=== PATIENT | female | born 1985 | race Caucasian/White ===

== ENCOUNTER → 2017-01-07 | Outpatient (CLI) | payer OTHER | LOC: FIMAGING 14:04 | PROVIDERS: ATTEND Obstetrics & Gynecology | DX: O09.213 Supervision of pregnancy with history of pre-term labor, third trimester (principal); O73.0 Retained placenta without hemorrhage; Z3A.32 32 weeks gestation of pregnancy ==

== ENCOUNTER 2017-01-18 15:46 | Observation (INO) | payer OTHER ==
--- NOTE | 2017-01-18 17:29 | SOAPPROG ---
SOAP Progress Note Assessment/Plan: Assessment: 33w3d H/o delivery at 36 weeks Reactive NST Mild upper abdominal pain, unclear etiology, possibly MSK vs gas pain. No e/o PIH, labor, abruption Plan: Trial abd binder tylenol/ice Call if symptoms worsen or change Urine test of cure F/u as scheduled on with Dr. Porter Jesus Encouraged pt to call [facility] with any concerns, explained how to use after hours line 01/18/17 17:25 01/18/17 17:30 01/18/17 17:35 Subjective: Pt is a 31 yo at 33w3d, followed by Dr. Porter Jesus. She started having mild upper abdominal discomfort, abdomen is tender to touch and uncomfortable when moving, about 3/10 pain. Started 3 days ago near the end of the day, resolved with rest, then happened again yesterday later in the afternoon, and then today it was present when she woke up. Goes away completely when she lays down and isn't moving around. Is very mild overall. No fevers/ chills. No nausea or vomiting. No diarrhea or constipation. No LOF, Ctx, VB. + FM. Doesn't feel like GERD, she had that in past and has been treated with famotidine. Doesn't seem related to food. Had enterococcus UTI last week, was asymptomatic but found on routine urine dip, did complete 7 days of macrobid. Pt wasn't sure what to do so she googled for a nurse advice line and was connected with [facility] who advised her to present to ED. c/b prior PTD at 36 weeks, she has been on 17 OHP this PMS, PSH, FM, SH, Meds, Allergies reviewed, non contributory Objective: FHR baseline 115, mod joy, + accels, no decels Rare contraction Reactive NST Vitals: 105/61, 63, 95% Gen: NAD Resp: unlabored CV: Reg rate Abd: gravid, soft, nontender Ext: no edema SVE: long/closed/soft ICD10 Worksheet Patient Problems: Problems Problem Status Onset Abdominal pain affecting Acute - ICD10 Problem Qualifiers (1) Abdominal pain affecting
== END 2017-01-18 17:45 | disposition home or self-care (01) ==
LOC: FLD 15:46
PROVIDERS: ADMIT Obstetrics & Gynecology; ATTEND Obstetrics & Gynecology
DX: O99.89 Other specified diseases and conditions complicating pregnancy, childbirth and the puerperium (principal); R10.10 Upper abdominal pain, unspecified; Z3A.33 33 weeks gestation of pregnancy; Z87.51 Personal history of pre-term labor
CPT/HCPCS: G0378 ×2

== ENCOUNTER → 2017-01-28 | Outpatient (CLI) | payer OTHER | LOC: FIMAGING 12:47 | PROVIDERS: ATTEND Obstetrics & Gynecology | DX: Z34.82 Encounter for supervision of other normal pregnancy, second trimester (principal); Z3A.35 35 weeks gestation of pregnancy ==

== ENCOUNTER 2017-02-25 05:36 | Inpatient (IN) | payer OTHER ==
[2017-02-25] MEDS ORDERED: LR 500 ML IV ONE (05:48)
[2017-02-25] MEDS ORDERED: CITRIC ACID/SODIUM CITRATE 30 ML UDCUP PO ONE (05:48)
[2017-02-25] MEDS ORDERED: ceFAZolin 2 GM/DEXTROSE 100 ML IV ONE (05:48)
[2017-02-25] MEDS ORDERED: LR 1,000 ML IV SCH (06:00)
[2017-02-25 06:21] LABS: % IMMATURE GRANULYOCYTES 0.8 % (0.0-1.1); ABSOLUTE IMMATURE GRANULOCYTES 0.09 10^3/uL (0.00-0.10); ADD DIFF? NO; ADD MORPH? NO; ADD SCAN? NO; ATYPICAL LYMPHOCYTE FLAG 10 (0-99); FRAGMENT RBC FLAG 0 (0-99); HEMATOCRIT 38.9 % (38.0-47.0); HEMOGLOBIN 13.4 g/dL (12.6-16.3); LEFT SHIFT FLG 0 (0-99); LIPEMIA HEMOLYSIS FLAG 90 (0-99); MEAN CELL HEMOGLOBIN 30.5 pg (27.9-34.1); MEAN CELL HEMOGLOBIN CONCENTR. 34.4 g/dL (32.4-36.7); MEAN CELL VOLUME 88.6 fL (81.5-99.8); PLATELET CLUMPS FLAG 0 (0-99); PLATELET COUNT 280 10^3/uL (150-400); RED BLOOD CELL COUNT 4.39 10^6/uL (4.18-5.33); RED CELL DISTRIBUTION WIDTH 13.1 % (11.5-15.2)
[2017-02-25] MEDS ORDERED: LIDOCAINE 1% 30 ML SDV ONE (06:56)
[2017-02-25] MEDS ORDERED: TERBUTALINE SULFATE 1 MG/ML VIAL ONE (06:57)
[2017-02-25] MEDS ORDERED: MISOPROSTOL 200 MCG TAB ONE (06:58)
[2017-02-25] MEDS ORDERED: OXYTOCIN 10 UNIT/ML VIAL ONE (06:58)
[2017-02-25] MEDS ORDERED: fentaNYL 100 MCG/2 ML INJ ONE (07:23)
[2017-02-25] MEDS ORDERED: morphINE PF 5 MG/10 ML INJ ONE (07:23)
[2017-02-25] MEDS ORDERED: OXYTOCIN 100 UNITS/10 ML VIAL ONE (07:24)
[2017-02-25] MEDS ORDERED: ONDANSETRON 4 MG/2 ML VIAL ONE ×2 (07:24)
[2017-02-25] MEDS ORDERED: PHENYLEPHRINE HCL 100 MCG/ML SYR ONE ×2 (07:24→08:20)
--- NOTE | 2017-02-25 08:25 | OBPROC ---
- Delivery Pre-op Diagnoses: Primary C/S for breech Post-op Diagnoses: Primary C/S for breech Procedure: Primary Surgeon: Liv Bhatia Lubrication Equipment Servicer: Shira De Anesthesiologist: Taran Watt Flare Man/MOLDER OPERATOR: Shirley Escobar Anesthesia: Spinal Complications: None Specimen(s)/Path: Placenta IV Fluid (ml): 2,400 EBL: 600 - Info A Delivery Date: 02/25/17 Delivery Time: 08:07 Sex of Infant: Male Score (1 Min): 8 Score (5 Min): 9
--- NOTE | 2017-02-25 08:54 | GOP ---
[f rep st] OPERATIVE REPORT DATE OF OPERATION: 02/25/2017 SURGEON: Liv Jesus MD BRICK POINTER: Shira De, certified nurse chief nursing executive. ANESTHESIA: Spinal. PREOPERATIVE DIAGNOSIS: Intrauterine at 39 and 0/7 weeks gestation with breech presentation. POSTOPERATIVE DIAGNOSIS: Intrauterine at 39 and 0/7 weeks gestation with breech presentation. PROCEDURE PERFORMED: Primary low transverse section. FINDINGS: Viable male infant, footling breech presentation. Apgars 8 and 9. Normal uterus, fallopian tubes, and ovaries. Evidence of adherent placenta. SPECIMENS: Placenta. ESTIMATED BLOOD LOSS: 600 mL INDICATIONS: Patient is a 31-year-old, G2, P1, female who is at 39 and 0/7 weeks gestation with breech presentation, and agreed to delivery. DESCRIPTION OF PROCEDURE: The patient was taken to the operating room where she was prepped and draped in normal sterile fashion in the dorsal supine position with leftward tilt. The patient received 2 g of Ancef preoperatively. A surgical time-out was performed verifying the patient's name, date of , planned procedure, and site. A Pfannenstiel skin incision was made with a scalpel and carried through to the underlying fascia. The fascia was incised in the midline and extended laterally. The superior aspect of the fascia was grasped with Bibiana clamps. The rectus muscles dissected off bluntly and with the Bovie cautery. The inferior aspect of the fascia was grasped with Bibiana clamps. The rectus muscles dissected off bluntly and with the Bovie cautery. The peritoneum was identified and entered bluntly. The peritoneum was divided. The bladder blade was placed. The vesicouterine peritoneum was incised with Metzenbaum scissors and a bladder flap was created digitally. The bladder blade was replaced. The uterus was incised with a scalpel. The uterine incision extended laterally. The was in footling breech presentation. The infant was delivered. The cord was clamped and cut. The was handed to the nurse practitioner. Placenta was delivered spontaneously. The uterus was exteriorized and in clearing out all the clots and debris. There was some evidence of adherent placenta that was removed. The patient does have a history of adherent placenta in the past. The uterus was repaired with 0 Monocryl in a running, locked fashion in 2 layers. The gutters were cleared of all clots and debris. The uterus was returned to the abdomen. The uterine incision was reinspected and noted to be hemostatic. The subfascial spaces were then inspected and noted to be hemostatic. The fascia was reapproximated with 0 Vicryl. The subcutaneous tissue was closed with 3-0 Vicryl and the skin was closed with 4-0 Monocryl. All counts were correct x2. COMPLICATIONS: None. OUTCOME: Stable to recovery room. /[id number]/MODL MTDD
[2017-02-25] MEDS ORDERED: NALOXONE HCL 0.4 MG/ML INJ IVP PRN (09:10)
[2017-02-25] MEDS ORDERED: PHENYLEPHRINE HCL 100 MCG/ML SYR IVP PRN (09:10)
[2017-02-25] MEDS ORDERED: ONDANSETRON 4 MG/2 ML VIAL IVP PRN (09:10)
[2017-02-25] MEDS ORDERED: SCOPOLAMINE HYDROBROMIDE 1.5 MG PATCH TD ONE ×2 (09:38→19:58)
[2017-02-25] MEDS ORDERED: KETOROLAC 30 MG/1 ML SDV ONE (10:25)
[2017-02-25] MEDS: KETOROLAC 30 MG/1 ML SDV IVP SCH ×3 (10:30→23:04)
--- NOTE | 2017-02-25 15:38 | PREANESOB ---
Obstetric Pre-Anesthesia Info - General Info Proposed Procedure: C Section for breech. : 2 Para: 2 WBD: 39 - Info Status: Full Term Monitors: External FHR Baseline (bpm): 125 FHR Pattern: Reassuring - Labor Status Section History: Primary Indications for Current Section: Breech Labor Epidural: No Anesthesia ROS: Prior epidural for labor. Allergies/Adverse Reactions: Allergy/AdvReac Type Severity Reaction Status Date / Time No Known Allergies Allergy Unverified 08/04/14 11:50 Home Medications: Medication Instructions Recorded 1 tab PO DAILY 08/04/14 Famotidine [Pepcid] 1 tab PO DAILY 02/25/17 Visit Medications: Generic Name Dose Route Start Last Admin Trade Name Freq PRN Reason Stop Dose Admin Hydrocodone Bitart/Acetaminophen 1 - 2 tab 02/25/17 07:34 [place] 5/325 PO 03/07/17 07:33 Q4HRS PRN Pain, Moderate Diphenhydramine HCl 25 - 50 mg 02/25/17 09:10 Benadryl Injection IVP 08/24/17 09:09 Q6HRS PRN Itching Docusate Sodium 100 mg 02/25/17 07:34 Colace PO 08/24/17 07:33 BID PRN Constipation Lactated Ringer's 1,000 mls @ 125 mls/hr 02/25/17 06:00 Lr IV 08/24/17 05:59 CONT ALVA Ibuprofen 600 mg 02/25/17 07:34 Motrin PO 08/24/17 07:33 Q6HRS PRN Inflammation Ketorolac Tromethamine 30 mg 02/25/17 12:00 02/25/17 10:30 Toradol IVP 02/26/17 06:01 30 mg Q6HRS ALVA Administration Naloxone HCl 0.4 mg 02/25/17 09:10 Narcan IVP 02/26/17 09:11 PRN PRN respiratory depression Ondansetron HCl 4 mg 02/25/17 09:10 Zofran IVP 08/24/17 09:09 Q4HRS PRN Nausea/Vomiting, Can't Take PO Simethicone 80 mg 02/25/17 07:34 Mylicon PO 08/24/17 07:33 .TIDMEALS AND HS PRN Gas Discontinued Medications Generic Name Dose Route Start Last Admin Trade Name Freq PRN Reason Stop Dose Admin Citric Acid/Sodium Citrate 30 ml 02/25/17 05:48 02/25/17 07:25 Bicitra PO 02/25/17 05:49 30 ml ONCALL ONE Administration Ephedrine Sulfate Confirm 02/25/17 06:57 Ephedrine Sulfate Administered 02/25/17 06:58 Dose 50 mg .ROUTE .STK-MED ONE Fentanyl Confirm 02/25/17 07:23 Sublimaze Administered 02/25/17 07:24 Dose 100 mcg .ROUTE .STK-MED ONE Cefazolin Sodium/Dextrose 100 mls @ 200 mls/hr 02/25/17 05:48 02/25/17 07:32 Ancef 2 Gm (Premix) IV 02/25/17 06:17 100 mls ONCALL ONE Administration Protocol Lactated Ringer's 500 mls @ 0 mls/hr 02/25/17 05:48 Lr IV 02/25/17 05:49 ONCE ONE As Directed Ketorolac Tromethamine Confirm 02/25/17 10:25 Toradol Administered 02/25/17 10:26 Dose 30 mg .ROUTE .STK-MED ONE Lidocaine HCl Confirm 02/25/17 06:56 Lidocaine Hcl 1% Administered 02/25/17 06:57 Dose 30 ml .ROUTE .STK-MED ONE Misoprostol Confirm 02/25/17 06:58 Cytotec Administered 02/25/17 06:59 Dose 1,000 mcg .ROUTE .STK-MED ONE Morphine Sulfate Confirm 02/25/17 07:23 Morphine Pf 5 Mg/10 Ml Administered 02/25/17 07:24 Dose 5 mg .ROUTE .STK-MED ONE Ondansetron HCl Confirm 02/25/17 07:24 Zofran Administered 02/25/17 07:25 Dose 4 mg .ROUTE .STK-MED ONE Ondansetron HCl Confirm 02/25/17 07:24 Zofran Administered 02/25/17 07:25 Dose 4 mg .ROUTE .STK-MED ONE Oxytocin Confirm 02/25/17 06:58 Pitocin Administered 02/25/17 06:59 Dose 30 unit .ROUTE .STK-MED ONE Oxytocin Confirm 02/25/17 07:24 Pitocin Administered 02/25/17 07:25 Dose 100 units .ROUTE .STK-MED ONE Phenylephrine HCl Confirm 02/25/17 07:24 Quang-Synephrine Administered 02/25/17 07:25 Dose 1,000 mcg .ROUTE .STK-MED ONE Phenylephrine HCl Confirm 02/25/17 08:20 Quang-Synephrine Administered 02/25/17 08:21 Dose 1,000 mcg .ROUTE .STK-MED ONE Phenylephrine HCl 100 mcg 02/25/17 09:10 Quang-Synephrine IVP 02/25/17 10:11 Q1M PRN Hypotension Scopolamine HBr Confirm 02/25/17 09:38 Transderm-Scop Administered 02/25/17 09:39 Dose 1.5 mg TD .STK-MED ONE Terbutaline Sulfate Confirm 02/25/17 06:57 Brethine Administered 02/25/17 06:58 Dose 1 mg .ROUTE .STK-MED ONE - Anesthesia History Response to Local Anesthetics: Normal Anesthesia & Operative History: No Prior Problems Family Anesthesia History: Negative - Social History Substance Use/Abuse: Denies - Focused Exam Latest Vital Signs (Nursing): Temp Pulse Resp BP Pulse Ox 36.1 C 68 16 91/52 L 99 02/25/17 15:27 02/25/17 15:27 02/25/17 15:27 02/25/17 15:27 02/25/17 15:27 Blood Pressure: 106/68 Heart Rate: 67 Respiratory Rate: 16 Height/Weight (Nursing): Height 170.18 cm Weight 79.379 kg Physical Exam: Within normal limits. ASA Status: II Labs: 02/25/17 06:00 Patient ABO/Rh A POSITIVE 02/25/17 06:00 - Plan Anesthetic Plan: SAB Consent Signed and on Chart: Yes Patient/Guardian Understands and Agrees to Plan: Yes
--- NOTE | 2017-02-25 15:41 | POSTANESTH ---
Post Anesthetic Evaluation Cardiovascular Status: Normal, Stable Respiratory Status: Normal, Stable, Similar to Pre-op Cond. Level of Consciousness/Mental Status: Can Participate in Eval, Alert and Oriented Pain Control: Adequate, Prn Tx Ordered Nausea/Vomiting Control: Inadeq, Add Tx Reqired Complications Possibly Related to Anesthesia: None Noted (Tolerated spinal well , BP treated, comfortable for surgery, to PACU, no pain, nausea treatment underway.)
[2017-02-25] MEDS: DOCUSATE SODIUM 100 MG CAP PO PRN ×2 (17:05→21:06)
[2017-02-25] MEDS: DOCUSATE SODIUM 100 MG CAP PO SCH (21:06)
[2017-02-26] MEDS: KETOROLAC 30 MG/1 ML SDV IVP SCH (04:56)
[2017-02-26] MEDS: HYDROCODONE/APAP 5/325 TAB PO PRN ×5 (05:32→22:04)
--- NOTE | 2017-02-26 08:24 | SOAPPROG ---
SOAP Progress Note Assessment/Plan: Assessment: 31 y.o. s/p primary C/S for breech PPD/ POD #1. Recovering well with good pain control. Incision CDI. . Plan: Routine / post-op orders. consult. D/C turcios catheter, abdominal bandage and plexi-pulse stockings. Hep-lock IV. 02/26/17 08:21 Subjective: Reports feeling well with adequate pain control and minimal vaginal bleeding. Incision CDI. . Eating and drinking well without nausea or vomiting. Has been out of bed and ambulating without vertigo. Good support system with appropriate mood. Objective: Vital Signs Temp Pulse Resp BP Pulse Ox 37.2 C 67 20 81/43 L 95 02/26/17 00:00 02/26/17 06:00 02/26/17 06:00 02/26/17 00:00 02/26/17 06:00 Laboratory Results 02/26/17 05:00 02/25/17 02/26/17 02/27/17 05:59 05:59 05:59 Intake Total 7500 Output Total 6975 Balance 525 - Time Spent With Patient Time Spent With Patient: 20 minutes - Pending Discharge Pending Discharge Within 24 Hours: No Pending Discharge Within 48 Hours: Yes Pending Discharge Date: 02/28/17 Pending Discharge Time: 11:00 Physical Exam - Physical Exam General Appearance: WD/WN, alert, no apparent distress EENT: normal ENT inspection Neck: non-tender, full range of motion, normal inspection Respiratory: lungs clear Cardiac/Chest: regular rate, rhythm Abdomen: non-tender, soft Pelvic Exam: normal external exam Rectal: deferred Back: Normal inspection Skin: normal color, warm/dry Lymphatic: no adenopathy Extremities: non-tender Neuro/Psych: alert, normal mood/affect, oriented x 3 ICD10 Worksheet Patient Problems: Problems Problem Status Onset Breech presentation Acute delivery delivered Acute Abdominal pain affecting Acute
[2017-02-26] MEDS: IRON POLYSAC/IRON HEME 28 MG TAB PO SCH (08:53)
[2017-02-26] MEDS: DOCUSATE SODIUM 100 MG CAP PO SCH ×2 (08:53→22:07)
[2017-02-26] MEDS: IBUPROFEN 600 MG TAB PO PRN ×3 (11:04→23:33)
[2017-02-26 11:40] VITALS: RESP 16
[2017-02-26] MEDS ORDERED: PATCH REMOVAL 1 EA PATCH TD ONE (19:58)
[2017-02-27] MEDS: HYDROCODONE/APAP 5/325 TAB PO PRN ×8 (02:11→23:17)
[2017-02-27] MEDS: IBUPROFEN 600 MG TAB PO PRN ×3 (05:19→22:56)
[2017-02-27 07:42] VITALS: O2SAT 94
[2017-02-27] MEDS: IRON POLYSAC/IRON HEME 28 MG TAB PO SCH (08:18)
[2017-02-27] MEDS: SIMETHICONE 80 MG TAB CHEW PO PRN ×2 (08:18→08:21)
[2017-02-27] MEDS: DOCUSATE SODIUM 100 MG CAP PO SCH ×2 (08:24→21:11)
[2017-02-27] MEDS ORDERED: POLYETHYLENE GLYCOL 3350 17 GM PKT PO PRN (08:58)
[2017-02-27] MEDS ORDERED: BISACODYL 10 MG SUPP PR PRN (08:58)
[2017-02-27] MEDS ORDERED: MAGNESIUM HYDROXIDE 30 ML UDCUP PO PRN (08:58)
[2017-02-27] MEDS ORDERED: LACTULOSE 20 GM/30 ML UDCUP PO PRN (08:58)
--- NOTE | 2017-02-27 09:00 | SOAPPROG ---
SOAP Progress Note Assessment/Plan: Assessment: POD#2 s/p pLTCS for breech recovering well Plan: Increase ambulation Bowel protocol Home POD#3 02/27/17 08:57 Subjective: Pain improved with binder. Still with some pain with walking, L>R at level of incision, but declines switching to percocet or alternative med for now, wants to continue with motrin and norco. Bleeding minimal. BF going well. Feels she will be ready for home tomorrow. Objective: Vital Signs Temp Pulse Resp BP Pulse Ox 36.1 C 61 16 98/60 L 94 02/27/17 07:41 02/27/17 07:41 02/27/17 07:41 02/27/17 07:41 02/27/17 07:41 Laboratory Results 02/26/17 05:00 02/26/17 02/27/17 02/28/17 05:59 05:59 05:59 Intake Total 7500 Output Total 5883 2605 Balance 525 -2605 Gen: NAD Resp: unlabored CV: reg rate Breast: soft Abd: soft, minimally tender, minimal distention Incision: c/d/i with steri strips Ext: no edema ICD10 Worksheet Patient Problems: Problems Problem Status Onset Breech presentation Acute delivery delivered Acute Abdominal pain affecting Acute
[2017-02-27] MEDS ORDERED: OXYCODONE/APAP 5/325 TAB PO PRN (21:56)
[2017-02-28] MEDS: HYDROCODONE/APAP 5/325 TAB PO PRN ×7 (01:17→13:57)
[2017-02-28] MEDS: SIMETHICONE 80 MG TAB CHEW PO PRN ×2 (03:21→08:38)
[2017-02-28] MEDS: IBUPROFEN 600 MG TAB PO PRN ×2 (05:22→11:17)
[2017-02-28] MEDS: IRON POLYSAC/IRON HEME 28 MG TAB PO SCH (08:02)
[2017-02-28] MEDS: DOCUSATE SODIUM 100 MG CAP PO SCH (08:16)
--- NOTE | 2017-02-28 08:31 | OBGCSDC ---
General Delivery Information - General Info : 2 Para: 2 Delivery Date: 02/25/17 Delivery Time: 08:07 Delivery Physician/CNM: Liv Bhatia Seafood Processor: Shira De Admission Date: 02/25/17 Labs: Patient ABO/Rh A POSITIVE 02/25/17 06:00 Hct 33.8 % (38.0-47.0) L 02/26/17 05:00 - Info A Sex of : Male Score (1 Min): 8 Score (5 Min): 9 - Delivery IUP (Weeks): 39 Number of Prior Sections: 0 Indications for Current Section: Breech Procedures: LTCS Intra-op Complications: None EBL: 600 Anesthesia: Spinal Discharge Information - Discharge Information Discharge Medications: Ibuprofen, Vitamins, Vicodin Condition: Good Instruction/Follow Up: Two Weeks Discharge Physician/CNM: Shira De Discharge Date: 02/28/17 Dictated: No
[2017-02-28 09:33] VITALS: BP 102/69; PULSE 66; TEMP 97.9
== END 2017-02-28 14:15 | disposition home or self-care (01) | DRG 766 ==
LOC: FLD 05:36 → FOB 12:59
PROVIDERS: ADMIT Obstetrics & Gynecology; ATTEND Obstetrics & Gynecology
PROC: 10D00Z1 Extraction of Products of Conception, Low, Open Approach (ICD-10-PCS; principal; 2017-02-25)
DX: O32.8XX0 Maternal care for other malpresentation of fetus, not applicable or unspecified (principal); Z3A.39 39 weeks gestation of pregnancy; Z37.0 Single live birth
CPT/HCPCS: J0690; J1885; J2274; J2370; J2405; J2590; J3010; J3105

== ENCOUNTER → 2019-02-04 | Outpatient (CLI) | payer OTHER | LOC: FIMAGING 12:04 | PROVIDERS: ATTEND Obstetrics & Gynecology | DX: O09.522 Supervision of elderly multigravida, second trimester (principal); Z3A.19 19 weeks gestation of pregnancy ==